=== PATIENT | female | born 1975 | race Caucasian/White ===

== ENCOUNTER 2021-12-16 08:13 | Emergency (ER) | payer BC ==
[~2021-12-16] VITALS: Ht 157.5 cm; Wt 90.7 kg
[2021-12-16 08:17] VITALS: BP_SYST 171
--- NOTE | 2021-12-16 09:57 | NUR ---
PT AMBULATED TO BED WITH ASSIST. NAD NOTED. PAIN TO RIGHT BUTTOCKS AREA. VSS. SIDE RAILS UP. AT BEDSIDE. AWAITING MD ASSESS AND FURTHER ORDERS.
[2021-12-16] MEDS ORDERED: CYCLOBENZAPRINE HCL 10 MG TABLET (FLEXERIL) PO ONE (10:30)
[2021-12-16] MEDS ORDERED: KETOROLAC TROMETHAMINE 60 MG/2 ML VIAL IM ONE (10:30)
[2021-12-16] MEDS ORDERED: CYCL10TA24 PO (10:53)
[2021-12-16] MEDS ORDERED: NAPR-688 PO (10:53)
[2021-12-16] MEDS ORDERED: LIDO1ADH14 TP (10:53)
[2021-12-16] MEDS ORDERED: HYDROcodone/ACETAMIN 5-325 MG TAB (NORCO/ VICODIN) PO ONE (11:15)
[2021-12-16 12:27] VITALS: BP_SYST 127
--- NOTE | 2021-12-16 12:28 | NUR ---
Patient given written and verbal discharge instructions and verbalizes understanding. ER MD discussed with patient the results and treatment provided. Patient in stable condition. ID arm band removed. IV catheter removed intact and dressing applied, no active bleeding. Rx of FLEXERIL, LIDO PATCH, NAPROXEN given. Patient educated on pain management and to follow up with PMD. Pain Scale 2/10. Opportunity for questions provided and answered. Medication side effect fact sheet provided.
== END 2021-12-16 12:27 | disposition home or self-care (01) ==
LOC: SED 08:13
DX: S76.311A Strain of muscle, fascia and tendon of the posterior muscle group at thigh level, right thigh, initial encounter (principal); M79.651 Pain in right thigh; Z91.040 Latex allergy status; X58.XXXA Exposure to other specified factors, initial encounter; Y93.89 Activity, other specified; Y92.89 Other specified places as the place of occurrence of the external cause; Y99.8 Other external cause status
CPT/HCPCS: 99283; 96372; J1885